=== PATIENT | male | born 1950 | race Caucasian/White ===

== ENCOUNTER 2018-07-26 07:54 | Day surgery (SDC) | payer MEDICAID ==
[~2018-07-26] VITALS: Ht 175.3 cm; Wt 65.8 kg
[2018-07-26] MEDS ORDERED: KETOROLAC 30 MG/ML VIAL ONE (11:07)
[2018-07-26] MEDS ORDERED: LIDOCAINE 2% 100 MG/5 ML UJET TP ONE (11:07)
== END 2018-07-26 12:15 | disposition home or self-care (01) ==
LOC: EDSEX 07:54 → MDS 07:54 → MMU 07:54 → MDS 12:15
PROVIDERS: ATTEND Internal Medicine Gastroenterology
DX: Z12.11 Encounter for screening for malignant neoplasm of colon (principal); K63.3 Ulcer of intestine; K57.30 Diverticulosis of large intestine without perforation or abscess without bleeding; M19.90 Unspecified osteoarthritis, unspecified site; Z98.890 Other specified postprocedural states; Z79.1 Long term (current) use of non-steroidal anti-inflammatories (NSAID); Z79.899 Other long term (current) drug therapy; Z87.891 Personal history of nicotine dependence; Z90.2 Acquired absence of lung [part of]; Z85.118 Personal history of other malignant neoplasm of bronchus and lung
CPT/HCPCS: 45378; J1885